=== PATIENT | male | born 1980 | race African-American/Black ===

== ENCOUNTER 2021-03-16 02:23 | Inpatient (IN) ==
[2021-03-16] MEDS ORDERED: methylPREDNISolone SOD SUC 125 MG/2 ML VIAL IV STA (04:16)
[2021-03-16] MEDS ORDERED: FUROSEMIDE 100 MG/10 ML VIAL IV STA (04:16)
[2021-03-16] MEDS ORDERED: ALBUTEROL/IPRATROPIUM 3 ML NEB RESP TX STA (04:16)
[2021-03-16] MEDS ORDERED: ONDANSETRON 4 MG/2 ML VIAL IV STA (04:16)
[2021-03-16 05:05] LABS: Basophils % 0.2 % (0.0-0.8); Eosinophils # 0.1 10*3/uL (0.0-0.87); Eosinophils % 2.7 % (0.00-10.9); Hematocrit 26.8 VOL% (42.0-52.0); Hemoglobin 8.1 GM/DL (14.0-18.0); Immature Granulocytes % 0.2 %; Immature Granulocytes Absolute 0.01 #; Lymphocytes # 1.4 10*3/uL (1.4-4.0); Mean Corpuscular HGB Conc 30.2 GM/DL (32-36); Mean Corpuscular Volume 88.4 FL (87-102); Mean Platelet Volume 11.2 FL (9.6-12.0); Monocytes % 13.5 % (1.7-12.7); Neutrophils % 55.4 % (38.7-73.9); Platelet Count 147 T/CUMM (130-400); Red Blood Count 3.03 MC/CUMM (3.8-5.5); White Blood Count 4.8 T/CUMM (4-12)
[2021-03-16 05:32] LABS: Bilirubin,Total 0.4 MG/DL (0.20-1.00); Osmolality,Calculated 294.5 MOS/KG (273-304); Potassium 3.8 MMOL/L (3.5-5.1)
[2021-03-16] MEDS ORDERED: ONDANSETRON 4 MG/2 ML VIAL IV PRN (05:44)
[2021-03-16] MEDS ORDERED: ZALEPLON 5 MG CAPSULE PO PRN (05:44)
[2021-03-16] MEDS ORDERED: ACETAMINOPHEN 325 MG TABLET PO PRN (05:44)
[2021-03-16] MEDS ORDERED: MELATONIN 3 MG TABLET PO PRN (05:44)
[2021-03-16] MEDS ORDERED: GLUCAGON 1 MG VIAL IM PRN (05:44)
[2021-03-16] MEDS ORDERED: DEXTROSE 50% 25 GM/50 ML SYRINGE IV PRN (05:50)
[2021-03-16 06:52] LABS: Ferritin 167.6 ng/mL (26-388)
[2021-03-16] MEDS: HEPARIN 5,000 UNIT/1 ML VIAL SUBCUT SCH ×3 (06:58→22:05)
[2021-03-16] MEDS: INSULIN REGULAR 100 UNIT/ML SUBCUT SCH ×4 (08:42→21:13)
[2021-03-16] MEDS: CHOLECALCIFEROL 1,000 UNIT TABLET PO SCH (09:30)
[2021-03-16] MEDS: CETIRIZINE 10 MG TABLET PO SCH (09:30)
[2021-03-16] MEDS: ASCORBIC ACID 500 MG TABLET PO SCH ×2 (09:30→21:13)
[2021-03-16] MEDS: ZINC GLUCONATE 50 MG TABLET PO SCH (09:31)
[2021-03-16] MEDS: FAMOTIDINE 20 MG TABLET PO SCH ×2 (09:31→21:13)
[2021-03-16] MEDS ORDERED: HEPARIN 10,000 UNIT/10 ML VIAL IV SCH (14:15)
[2021-03-16 15:02] LABS: Hepatitis B Core IgM Quant 0.14 Index; Hepatitis B Surface Ag Quant < 0.10 Index; Hepatitis B Surface Ag Result Non-Reactive (NonReactive); Hepatitis C Virus Ab Quant 0.03 Index; Hepatitis C Virus Ab Result Non-Reactive (NonReactive)
[2021-03-16] MEDS: carvediloL 25 MG TABLET PO SCH (21:34)
[2021-03-16] MEDS: ROSUVASTATIN 20 MG TABLET PO SCH (21:34)
[2021-03-17] MEDS: HEPARIN 5,000 UNIT/1 ML VIAL SUBCUT SCH ×3 (06:06→22:48)
[2021-03-17 06:23] LABS: Hematocrit 30.3 VOL% (42.0-52.0); Hemoglobin 9.1 GM/DL (14.0-18.0); Immature Granulocytes % 0.2 %; Immature Granulocytes Absolute 0.01 #; Lymphocytes # 0.9 10*3/uL (1.4-4.0); Lymphocytes % 16.5 % (21.2-54.2); Mean Corpuscular Volume 88.9 FL (87-102); Mean Platelet Volume 12.6 FL (9.6-12.0); Neutrophils % 71.3 % (38.7-73.9); Platelet Count 183 T/CUMM (130-400); Red Blood Count 3.41 MC/CUMM (3.8-5.5); Red Cell Distribution Width 12.9 % (9.3-17.3); White Blood Count 5.5 T/CUMM (4-12)
[2021-03-17 06:44] LABS: Alanine Aminotransferase 34 U/L (16-61); Albumin 3.2 G/DL (3.4-5.0); Alkaline Phosphatase 97 U/L (45-117); Aspartate Amino Transferase 29 U/L (0-37); Bilirubin,Total < 0.39 MG/DL (0.20-1.00); Blood Urea Nitrogen 56 MG/DL (7-18); Calcium 8.6 MG/DL (8.5-10.1); Carbon Dioxide 26 MMOL/L (21-32); Estimated Glom Filtration Rate 24 ML/MIN; Glucose 138 MG/DL (74-106); Osmolality,Calculated 285.2 MOS/KG (273-304); Potassium 4.5 MMOL/L (3.5-5.1); Sodium 134 MMOL/L (136-145); Total Protein 8.5 G/DL (6.4-8.2)
[2021-03-17 06:51] LABS: Ferritin 181.4 ng/mL (26-388)
[2021-03-17] MEDS: INSULIN REGULAR 100 UNIT/ML SUBCUT SCH ×4 (08:03→22:50)
[2021-03-17] MEDS ORDERED: AZITHROMYCIN 250 MG TABLET PO SCH (09:00)
[2021-03-17] MEDS ORDERED: DEXAMETHASONE 4 MG/1 ML VIAL IV SCH (09:00)
[2021-03-17] MEDS ORDERED: DEXAMETHASONE 10 MG/1 ML VIAL ONE (09:15)
[2021-03-17] MEDS: ZINC GLUCONATE 50 MG TABLET PO SCH (09:18)
[2021-03-17] MEDS: carvediloL 25 MG TABLET PO SCH ×2 (09:18→21:40)
[2021-03-17] MEDS: CETIRIZINE 10 MG TABLET PO SCH (09:19)
[2021-03-17] MEDS: CHOLECALCIFEROL 1,000 UNIT TABLET PO SCH (09:19)
[2021-03-17] MEDS: FAMOTIDINE 20 MG TABLET PO SCH ×2 (09:19→21:40)
[2021-03-17] MEDS: ASCORBIC ACID 500 MG TABLET PO SCH ×2 (09:19→21:40)
[2021-03-17] MEDS: ROSUVASTATIN 20 MG TABLET PO SCH (21:40)
[2021-03-18 03:06] VITALS: BP 164/85
== END 2021-03-17 22:52 | disposition left against medical advice (07) | DRG 137 ==
LOC: N.ED 02:23 → N.EDINP 05:44
PROVIDERS: ADMIT Internal Medicine; ATTEND Internal Medicine